=== PATIENT | female | born 2000 | race Asian ===

== ENCOUNTER 2021-02-04 22:32 | Emergency (ER) | payer SELFPAY ==
[2021-02-04 22:51] VITALS: BP 123/80
--- NOTE | 2021-02-04 23:13 | ED Physician Documentation ---
PD HPI FEMALE - Stated complaint Stated Complaint: FEMALE - Chief complaint Chief Complaint: UTI - History obtained from History obtained from: Patient - History of Present Illness Timing - onset: How many months ago (has had some itching and mild discharge over past couple of months, come and go, but now notable vaginal pain and dysuria for the past 1-2 days.) Timing - duration: Days Timing - details: Gradual onset, Still present (much worse the past 2 days.) Associated symptoms: Vaginal pain, Vaginal discharge, Dysuria. No: Fever, Abdominal pain, Back pain Contributing factors: Sexually active. 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 - Present Medications Home Medications: Ambulatory Orders Medication Instructions Recorded Confirmed Fluconazole [Diflucan] 150 mg PO ONCE #1 tablet 02/05/21 metroNIDAZOLE [Flagyl] 500 mg PO BID 7 Days #15 tablet 02/05/21 - Allergies Allergies/Adverse Reactions: Allergies Allergy/AdvReac Type Severity Reaction Status Date / Time No Known Drug Allergies Allergy Verified 02/04/21 22:50 PD ED PE NORMAL - Vitals Vital signs reviewed: Yes - General General: Alert and oriented X 3, No acute distress, Well developed/nourished - Abdomen Abdomen: Soft, Non tender - Female Female : Supply Manager present, Other (external normal. Vault with thicker white discharge but also watery clear mucous discharge. Cervix is not red and no apparent endocervical discharge. ) - Rectal Rectal: Deferred - Back Back: No CVA TTP - Derm Derm: Normal color, Warm and dry Results - Vitals Vitals: Vital Signs - 24 hr 02/04/21 22:47 Temperature 36.4 C L Heart Rate 86 Respiratory 12 Rate Blood Pressure 123/80 O2 Saturation 99 Oxygen O2 Source Room air - Labs Labs: Laboratory Tests 02/04/21 02/04/21 02/04/21 00:06 00:06 23:37 Urine Color YELLOW Urine Clarity CLEAR Urine pH 6.5 Ur Specific [place] <=1.005 Urine Protein NEGATIVE Urine Glucose (UA) NEGATIVE Urine Ketones 15 H Urine Occult Blood NEGATIVE Urine Nitrite NEGATIVE Urine Bilirubin NEGATIVE Urine Urobilinogen 0.2 (NORMAL) Ur Leukocyte Esterase TRACE H Urine RBC 0-5 Urine WBC 6-10 H Ur Squamous Epith Cells FEW Squamous Urine Bacteria Few Ur Microscopic Review INDICATED Urine Culture Comments INDICATED Urine HCG, Qual NEGATIVE C. glabrata (PCR) NEGATIVE C. krusei (PCR) NEGATIVE [place]ali species DNA NEGATIVE Chlam trachomat DNA PCR NEGATIVE N.gonorrhoeae DNA (PCR) NEGATIVE T. vaginalis (PCR) NEGATIVE NEGATIVE Bact Vaginosis (PCR) NEGATIVE PD MEDICAL DECISION MAKING - ED course Complexity details: considered differential (clinically appears some yeast but also likely BV. No cervicitis per se. ), d/w patient Departure - Departure Disposition: 01 Home, Self Care Clinical Impression: Acute vaginitis Condition: Stable Record reviewed to determine appropriate education?: Yes Instructions: ED Vaginosis Bacterial, ED Vaginal Infec Fungal [place]ali Prescriptions: Fluconazole [Diflucan] 150 mg PO ONCE #1 tablet metroNIDAZOLE [Flagyl] 500 mg PO BID 7 Days #15 tablet Comments: On clinical exam, it looks likely to be a yeast infection certainly and also likely bacterial vaginitis. We gave you an antifungal tablet today. Take the fluconazole tablet repeat dose in 3 days. That should take care of the fungal component. Metronidazole twice daily for a week for the bacterial vaginitis. We did do a culture/PCR tests to assess for the vaginitis as well as STIs. This will result in 1 or 2 days. We will call you if we need to change the antibiotic treatment. On exam right now, it does not have the appearance of a typical STI so I would not treat it ahead of time but await the test results. Discharge Date/Time: 02/05/21 00:55
[2021-02-04 23:54] LABS: BILIRUBIN,URINE NEGATIVE (NEGATIVE); GLUCOSE, URINE (UA) NEGATIVE (NEGATIVE); KETONES,URINE (UA) 15 mg/dL (NEGATIVE); LEUKOCYTE ESTERASE, URINE TRACE (NEGATIVE); NITRITE,URINE NEGATIVE (NEGATIVE); OCCULT BLOOD,URINE NEGATIVE (NEGATIVE); PH,URINE 6.5 PH (5.0-7.5); PROTEIN,URINE NEGATIVE (NEGATIVE); UROBILINOGEN,URINE 0.2 (NORMAL) E.U./dL (NORMAL)
[2021-02-04 23:56] LABS: CLARITY,URINE CLEAR (CLEAR); HCG UR QUAL NEGATIVE
[2021-02-05] LABS: BACTERIA,URINE Few /HPF (None Seen); RBC,URINE 0-5 /HPF (0-5); SQUAMOUS EPITHELIAL CELL,UR FEW Squamous (<= Few)
[2021-02-05] MEDS ORDERED: metroNIDAZOLE 250 MG TABLET PO STA (00:13)
[2021-02-05] MEDS ORDERED: FLUCONAZOLE 100 MG TABLET PO STA (00:13)
[2021-02-05 02:41] LABS: BACTERIAL VAGINOSIS DNA NEGATIVE (NEGATIVE); CANDIDA GLABRATA DNA NEGATIVE (NEGATIVE); CANDIDA GROUP DNA NEGATIVE (NEGATIVE); CANDIDA KRUSEI DNA NEGATIVE (NEGATIVE); TRICHOMONAS VAGINALIS DNA NEGATIVE (NEGATIVE)
[2021-02-05 04:54] LABS: CHLAMYDIA TRACHOMATIS DNA NEGATIVE (NEGATIVE); NEISSERIA GONORRHOEAE DNA NEGATIVE (NEGATIVE); TRICHOMONAS VAGINALIS DNA NEGATIVE (NEGATIVE)
== END 2021-02-05 00:55 | disposition home or self-care (01) ==
LOC: ED 22:32
DX: N76.0 Acute vaginitis (principal)
CPT/HCPCS: 81001; 81025; 87086; 87481; 87491; 87591; 87661; 87801; 99283; A9270; 81003

== ENCOUNTER 2021-08-11 15:50 | Outpatient (CLI) | payer MEDICAID ==
--- NOTE | 2021-08-11 16:58 | XRAY Report ---
PROCEDURE: Lumbar Spine 2 View INDICATIONS: LOW BACK PX TECHNIQUE: 3 views of the lumbar spine were acquired. COMPARISON: None. FINDINGS: Bones: 5 [id number] vertebrae are present. There is normal bony alignment. No vertebral body compression fractures. No suspicious bony lesions. Soft tissues: Overlying bowel gas pattern is normal. No suspicious soft tissue calcifications. IMPRESSION: No acute fracture. No osseous lesion. If symptoms and/or clinical suspicion for patholog y continue, further assessment with repeat plain films, or advanced imaging (e.g., CT, MRI, or bone s can) is recommended for further assessment. Reviewed by: Pako Mcgee MD on 08/11/2021 4:57 PM PST Approved by: Pako Mcgee MD on 08/11/2021 4:57 PM PST Station ID: [id number]
== END 2021-08-11 23:59 | disposition home or self-care (01) ==
LOC: DI.N 15:50
PROVIDERS: ATTEND Nurse Practitioner
DX: M54.50 Low back pain, unspecified (principal)

== ENCOUNTER 2021-09-29 14:14 | Emergency (ER) | payer MEDICAID ==
[2021-09-29 14:26] VITALS: BP 124/75
[2021-09-29 15:33] LABS: BILIRUBIN,URINE NEGATIVE (NEGATIVE); GLUCOSE, URINE (UA) NEGATIVE (NEGATIVE); KETONES,URINE (UA) NEGATIVE (NEGATIVE); LEUKOCYTE ESTERASE, URINE NEGATIVE (NEGATIVE); NITRITE,URINE NEGATIVE (NEGATIVE); OCCULT BLOOD,URINE NEGATIVE (NEGATIVE); PROTEIN,URINE NEGATIVE (NEGATIVE); UROBILINOGEN,URINE 0.2 (NORMAL) E.U./dL (NORMAL)
[2021-09-29 15:36] LABS: CLARITY,URINE CLEAR (CLEAR); HCG UR QUAL NEGATIVE
[2021-09-29] MEDS ORDERED: KETOROLAC 60 MG/2 ML VIAL IM STA (16:25)
--- NOTE | 2021-09-29 16:26 | ED Physician Documentation ---
PD HPI BACK PAIN - Stated complaint Stated Complaint: LOW BACK PX/PELVIC PX - Chief complaint Chief Complaint: Back Pain - History obtained from History obtained from: Patient - Additional information Additional information: For last 2 to 3 months she has had low back pain and pelvic pain, left worse than right with mild vaginal pain and discharge. Previous diagnosis of vaginitis last year with similar. She is and monogamous in her sexual activity. She denies fevers or chills. No nausea. States that ketorolac shots have been helpful in the past for similar issues. 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 - Past Surgical History Past Surgical History: No - Present Medications Home Medications: Ambulatory Orders Medication Instructions Recorded Confirmed Fluconazole [Diflucan] 150 mg PO ONCE #1 tablet 02/05/21 metroNIDAZOLE [Flagyl] 500 mg PO BID 7 Days #15 tablet 02/05/21 Meloxicam [Mobic] 7.5 mg PO BID PRN #20 tablet 09/29/21 - Allergies Allergies/Adverse Reactions: Allergies Allergy/AdvReac Type Severity Reaction Status Date / Time No Known Drug Allergies Allergy Verified 09/29/21 14:22 - Social History Does the pt smoke?: No Smoking Status: Never smoker Does the pt drink ETOH?: No Does the pt have substance abuse?: No - Immunizations Immunizations are current?: Yes - POLST Patient has POLST: No PD ED PE NORMAL - Vitals Vital signs reviewed: Yes - General General: Alert and oriented X 3, No acute distress - Abdomen Abdomen: Normal bowel sounds, Soft, Non tender - Back Back: No spinal TTP, Other (Some muscular tenderness of the low back, no spinal tenderness) - Extremities Extremities: No edema, No calf tenderness / cord - Neuro Neuro: Alert and oriented X 3, Normal speech Results - Vitals Vitals: Vital Signs - 24 hr 09/29/21 14:22 Temperature 36.9 C Heart Rate 64 Respiratory 18 Rate Blood Pressure 124/75 O2 Saturation 99 Oxygen O2 Source Room air - Labs Labs: Laboratory Tests 09/29/21 09/29/21 15:21 16:37 Urine Color YELLOW Urine Clarity CLEAR Urine pH 6.0 Ur Specific [place] 1.020 Urine Protein NEGATIVE Urine Glucose (UA) NEGATIVE Urine Ketones NEGATIVE Urine Occult Blood NEGATIVE Urine Nitrite NEGATIVE Urine Bilirubin NEGATIVE Urine Urobilinogen 0.2 (NORMAL) Ur Leukocyte Esterase NEGATIVE Ur Microscopic Review NOT INDICATED Urine Culture Comments NOT INDICATED Urine HCG, Qual NEGATIVE C. glabrata (PCR) NEGATIVE C. krusei (PCR) NEGATIVE [place] species DNA NEGATIVE T. vaginalis (PCR) NEGATIVE Bact Vaginosis (PCR) NEGATIVE PD MEDICAL DECISION MAKING - ED course ED course: 21-year-old woman with subacute pelvic pain. Also concern for vaginitis. Vaginitis panel was negative but ultrasound showing a left ovarian cyst which could be causative. Gynecologic follow-up advised. She is not . Departure - Departure Disposition: 01 Home, Self Care Clinical Impression: Pelvic pain Condition: Good Record reviewed to determine appropriate education?: Yes Instructions: ED Acute Pain [facility] Prescriptions: Meloxicam [Mobic] 7.5 mg PO BID PRN #20 tablet PRN Reason: Pain Comments: As discussed, the ultrasound shows a left ovarian cyst measuring 2.4 x 1.7 x 2.3 cm. You [place]. They may want to perform an ultrasound in maybe 6 weeks to reassess. Return for new or worsening symptoms. I sent your prescription electronically to [facility]. Discharge Date/Time: 09/29/21 19:29
--- NOTE | 2021-09-29 18:30 | Ultrasound Report ---
PROCEDURE: Pelvic w/Doppler Complete INDICATIONS: PELVIC PAIN, TECHNIQUE: Real-time transabdominal scanning was performed of the pelvic organs, with image documentation. COMPARISON: None. FINDINGS: No pathologic free abdominal or pelvic fluid. Uterus: Uterus is normal in size at 6.8 x 4.3 x 6.8 cm. The endometrium measures 17.5 mm in combine d thickness. Ovaries: Right ovary measures 2.3 x 1.5 x 2.8 cm with total volume of 5.2 cc. Left ovary measures 2. 9 x 2.6 x 2.8 cm total volume of 15.0 cc. There is a 2.4 x 1.7 x 2.3 cm left ovarian thick walled cys t. Doppler evaluation demonstrates normal vascular flow within the ovaries bilaterally. IMPRESSION: 1. Uterus is sonographically normal. 2. No evidence of ovarian torsion. Please note ultrasound cannot exclude intermittent torsion. 3. 2.4 x 1.7 x 2.3 cm thick-walled left ovarian cyst. In a patient with negative test findi ng likely represents corpus luteal cyst or hemorrhagic cyst. In a patient with positive adrienne t ectopic is not excluded. Reviewed by: Maryanne Chaidez MD, PhD on 09/29/2021 5:[address] [facility] Approved by: Maryanne Chaidez MD, PhD on 09/29/2021 5:[address] [facility] Station ID: [id number]
[2021-09-29 19:17] LABS: BACTERIAL VAGINOSIS DNA NEGATIVE (NEGATIVE); CANDIDA GLABRATA DNA NEGATIVE (NEGATIVE); CANDIDA GROUP DNA NEGATIVE (NEGATIVE); CANDIDA KRUSEI DNA NEGATIVE (NEGATIVE); TRICHOMONAS VAGINALIS DNA NEGATIVE (NEGATIVE)
== END 2021-09-29 19:29 | disposition home or self-care (01) ==
LOC: ED 14:14
DX: R10.2 Pelvic and perineal pain (principal); N83.202 Unspecified ovarian cyst, left side; M54.50 Low back pain, unspecified
CPT/HCPCS: 81001; 81003; 81025; 87086; 87210; 87661; 87801; 93975; 96372; 99283; 99284

== ENCOUNTER 2021-11-10 18:11 | Emergency (ER) | payer OTHER, MEDICAID ==
[2021-11-10 18:17] VITALS: BP 116/69
[2021-11-10 18:25] LABS: BILIRUBIN,URINE NEGATIVE (NEGATIVE); GLUCOSE, URINE (UA) NEGATIVE (NEGATIVE); KETONES,URINE (UA) 15 mg/dL (NEGATIVE); LEUKOCYTE ESTERASE, URINE TRACE (NEGATIVE); NITRITE,URINE NEGATIVE (NEGATIVE); OCCULT BLOOD,URINE SMALL (NEGATIVE); PROTEIN,URINE NEGATIVE (NEGATIVE); UROBILINOGEN,URINE 0.2 (NORMAL) E.U./dL (NORMAL)
[2021-11-10] MEDS ORDERED: PHENAZOPYRIDINE 100 MG TABLET PO STA (18:25)
--- NOTE | 2021-11-10 18:25 | ED Physician Documentation ---
History of Present Illness - Stated complaint Stated Complaint: FEMALE - Chief complaint Chief Complaint: UTI - History obtained from History obtained from: Patient (21-year-old has had 3 days of urinary dysuria and burning and frequency. It is not associated with any constant back pain but she has occasional shocking pains in her back. No fevers or nausea. 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 - Past Surgical History Past Surgical History: No - Present Medications Home Medications: Ambulatory Orders Medication Instructions Recorded Confirmed Fluconazole [Diflucan] 150 mg PO ONCE #1 tablet 02/05/21 metroNIDAZOLE [Flagyl] 500 mg PO BID 7 Days #15 tablet 02/05/21 Meloxicam [Mobic] 7.5 mg PO BID PRN #20 tablet 09/29/21 Nitrofurantoin [Macrobid] 1 cap PO BID #10 cap 11/10/21 Phenazopyridine HCl [Pyridium] 200 mg PO TID PRN #6 tablet 11/10/21 - Allergies Allergies/Adverse Reactions: Allergies Allergy/AdvReac Type Severity Reaction Status Date / Time No Known Drug Allergies Allergy Verified 11/10/21 18:14 - Social History Does the pt smoke?: No Smoking Status: Never smoker Does the pt drink ETOH?: No Does the pt have substance abuse?: No - Immunizations Immunizations are current?: Yes - POLST Patient has POLST: No PD ED PE NORMAL - Vitals Vital signs reviewed: Yes - General General: Alert and oriented X 3, No acute distress - Abdomen Abdomen: Soft, Non tender - Back Back: No CVA TTP - Neuro Neuro: Alert and oriented X 3, Normal speech Results - Vitals Vitals: Vital Signs - 24 hr 11/10/21 18:14 Temperature 36.5 C Heart Rate 70 Respiratory 16 Rate Blood Pressure 116/69 O2 Saturation 100 Oxygen O2 Source Room air - Labs Labs: Laboratory Tests 11/10/21 18:20 Urine Color LT. YELLOW Urine Clarity CLEAR Urine pH 6.0 Ur Specific [place] 1.010 Urine Protein NEGATIVE Urine Glucose (UA) NEGATIVE Urine Ketones 15 H Urine Occult Blood SMALL H Urine Nitrite NEGATIVE Urine Bilirubin NEGATIVE Urine Urobilinogen 0.2 (NORMAL) Ur Leukocyte Esterase TRACE H Urine RBC 6-10 H Urine WBC 11-25 H Ur Squamous Epith Cells NONE SEEN Urine Bacteria Few Ur Microscopic Review INDICATED Urine Culture Comments INDICATED Urine HCG, Qual NEGATIVE Departure - Departure Disposition: 01 Home, Self Care Clinical Impression: Cystitis Condition: Good Record reviewed to determine appropriate education?: Yes Instructions: ED UTI Cystitis Female Prescriptions: Nitrofurantoin [Macrobid] 1 cap PO BID #10 cap Phenazopyridine HCl [Pyridium] 200 mg PO TID PRN #6 tablet PRN Reason: dysuria Comments: As discussed, it seems today that you have a bladder infection. Return if you worsen or if the back pain comes worse or if you run a fever. I sent your prescription electronically to [facility] in [place]. We will culture your urine, the results should be done in 48-72 hours. If an antibiotic change is necessary we will call you. Return if worse in the meantime, especially if you develop increasing flank pain, fevers, or cannot k eep down the medication.
[2021-11-10 18:26] LABS: CLARITY,URINE CLEAR (CLEAR)
[2021-11-10 18:27] LABS: HCG UR QUAL NEGATIVE
[2021-11-10 18:35] LABS: BACTERIA,URINE Few /HPF (None Seen); SQUAMOUS EPITHELIAL CELL,UR NONE SEEN (<= Few)
[2021-11-10] MEDS ORDERED: NITROFURANTOIN MACRO 100 MG CAPSULE PO STA (18:39)
== END 2021-11-10 18:51 | disposition home or self-care (01) ==
LOC: ED 18:11
DX: N30.90 Cystitis, unspecified without hematuria (principal)
CPT/HCPCS: 81001; 81025; 87086; 87181; 99282; 99283; A9270; 81003

== ENCOUNTER 2022-08-31 12:38 | Emergency (ER) | payer MEDICAID, OTHER ==
[2022-08-31 12:59] VITALS: BP 129/74
[2022-08-31 13:17] LABS: BASOPHILS % (AUTO) 0.2 %; EOSINOPHILS # (AUTO) 0.1 10^3/uL (0.0-0.7); EOSINOPHILS % (AUTO) 1.5 %; HCT - HEMATOCRIT 43.1 % (37.0-47.0); HGB - HEMOGLOBIN 14.1 g/dL (12.0-16.0); LYMPHOCYTES # (AUTO) 1.6 10^3/uL (1.5-3.5); LYMPHOCYTES % (AUTO) 29.4 %; MEAN CORPUSCULAR HEMOGLOBIN 28.6 pg (27.0-31.0); MEAN CORPUSCULAR HGB CONC 32.7 g/dL (32.0-36.0); MEAN CORPUSCULAR VOLUME 87.4 fL (81.0-99.0); MEAN PLATELET VOLUME 9.1 fL (7.9-10.8); MONOCYTES # (AUTO) 0.5 10^3/uL (0.0-1.0); MONOCYTES % (AUTO) 8.7 %; NEUTROPHILS # (AUTO) 3.2 10^3/uL (1.5-6.6); NEUTROPHILS % (AUTO) 59.6 %; PLT - PLATELET COUNT 253 10^3/uL (130-450); RED BLOOD COUNT 4.93 10^6/uL (4.20-5.40); RED CELL DISTRIBUTION WIDTH 13.1 % (12.0-15.0); WHITE BLOOD COUNT 5.4 x10^3/uL (4.8-10.8)
[2022-08-31 13:30] LABS: ALBUMIN 4.2 g/dL (3.2-5.5); ALBUMIN/GLOBULIN RATIO 1.2 (1.0-2.2); BILIRUBIN,TOTAL 0.8 mg/dL (0.2-1.0); CALCIUM 8.9 mg/dL (8.5-10.3); CREATININE 0.6 mg/dL (0.4-1.0); POTASSIUM 3.8 mmol/L (3.5-5.0); TOTAL PROTEIN 7.8 g/dL (6.7-8.2)
[2022-08-31 13:30] LABS: BILIRUBIN,URINE NEGATIVE (NEGATIVE); GLUCOSE, URINE (UA) NEGATIVE (NEGATIVE); KETONES,URINE (UA) 15 mg/dL (NEGATIVE); LEUKOCYTE ESTERASE, URINE NEGATIVE (NEGATIVE); NITRITE,URINE NEGATIVE (NEGATIVE); OCCULT BLOOD,URINE NEGATIVE (NEGATIVE); PROTEIN,URINE NEGATIVE (NEGATIVE); UROBILINOGEN,URINE 0.2 (NORMAL) E.U./dL (NORMAL)
[2022-08-31 13:31] LABS: CLARITY,URINE CLEAR (CLEAR); HCG UR QUAL NEGATIVE
[2022-08-31] MEDS ORDERED: iohexoL-300 100 ML VIAL ONE (13:37)
--- NOTE | 2022-08-31 15:11 | CT Report ---
PROCEDURE: ABDOMEN/PELVIS W INDICATIONS: RLQ pain CONTRAST: 100ml Omnipaque 300 TECHNIQUE: After the administration of intravenous contrast, 5 mm thick sections acquired from the diaphragms to the symphysis. 5 mm thick coronal and sagittal reformats were acquired. For radiation dose reducti on, the following was used: automated exposure control, adjustment of mA and/or kV according to niyah ent size. COMPARISON: None. FINDINGS: Image quality: Excellent. ABDOMEN: Lung bases: Lung bases are clear. Heart size is normal. Solid organs: Liver and spleen are normal in size and enhancement. Gallbladder is unremarkable with out calcified gallstones. Biliary system is non dilated. Pancreas enhances normally. No adrenal no dules. Kidneys demonstrate normal size and enhancement, without hydronephrosis. Peritoneum and bowel: Bowel loops demonstrate normal wall thickness and caliber. A normal gas-filled appendix is identified. There is mild pelvic ascites, somewhat greater than physiologic. Nodes and vessels: No retroperitoneal or mesenteric adenopathy by size criteria. Aorta and inferior vena cava are normal in size. Miscellaneous: No ventral hernias. PELVIS: Genitourinary: Bladder wall thickness is normal. Miscellaneous: No inguinal hernias or adenopathy. Partially collapsed left adnexal cyst. Bones: No suspicious bony lesions. No vertebral body compression fractures. Diffuse disc bulge at L4-L5 and probable associated shallow superiorly disc extrusion. Disc bulge at L5-S1. IMPRESSION: 1. A normal appendix is identified. 2. Partially collapsed left adnexal cyst with mild pelvic ascites, greater than physiologic. 3. Disc bulge plus shallow associated disc extrusion at L4-L5, disc bulge at L5-S1. 4. No other significant findings noted. Reviewed by: Terry Swenson MD on 08/31/2022 3:10 PM PST Approved by: Terry Swenson MD on 08/31/2022 3:10 PM PST Station ID: [id number]
[2022-08-31] MEDS ORDERED: iohexoL-300 100 ML VIAL IVP ONE (15:41)
--- NOTE | 2022-08-31 15:45 | ED Physician Documentation ---
PD HPI ABD PAIN - Stated complaint Stated Complaint: ABD PX - Chief complaint Chief Complaint: Abd Pain - History obtained from History obtained from: Patient - Additional information Additional information: The patient is sent to the emergency department by the walk-in clinic for "possible appendicitis". She is reported by the referring provider to have had "right lower quadrant pain". The patient reports that yesterday, she began to notice upper abdominal pain that was on both sides lasted throughout the day and then became generalized. No nausea or vomiting. No fevers. No change in her bowel habits. No dysuria. She is not known to be . The patient states she has a history of "ulcerative colitis" but she does not know if that is still active. She is not currently on any medications. No respiratory symptoms. No other complaints at this time. Review of Systems Ten Systems: 10 systems reviewed and negative Constitutional: reports: Reviewed and negative Eyes: reports: Reviewed and negative Ears: reports: Reviewed and negative Nose: reports: Reviewed and negative Throat: reports: Reviewed and negative Cardiac: reports: Reviewed and negative Respiratory: reports: Reviewed and negative GI: reports: Abdominal Pain : reports: Reviewed and negative Skin: reports: Reviewed and negative Musculoskeletal: reports: Reviewed and negative Neurologic: reports: Reviewed and negative Psychiatric: reports: Reviewed and negative Endocrine: reports: Reviewed and negative Immunocompromised: reports: Reviewed and negative PD PAST MEDICAL HISTORY - Past Medical History Cardiovascular: None Respiratory: None 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 - Past Surgical History Past Surgical History: No - Present Medications Home Medications: Ambulatory Orders Medication Instructions Recorded Confirmed Fluconazole [Diflucan] 150 mg PO ONCE #1 tablet 02/05/21 metroNIDAZOLE [Flagyl] 500 mg PO BID 7 Days #15 tablet 02/05/21 Meloxicam [Mobic] 7.5 mg PO BID PRN #20 tablet 09/29/21 Nitrofurantoin [Macrobid] 1 cap PO BID #10 cap 11/10/21 Phenazopyridine HCl [Pyridium] 200 mg PO TID PRN #6 tablet 11/10/21 - Allergies Allergies/Adverse Reactions: Allergies Allergy/AdvReac Type Severity Reaction Status Date / Time No Known Drug Allergies Allergy Verified 08/31/22 12:59 - Social History Does the pt smoke?: No Smoking Status: Never smoker Does the pt drink ETOH?: No Does the pt have substance abuse?: No - Immunizations Immunizations are current?: Yes - POLST Patient has POLST: No PD ED PE NORMAL - Vitals Vital signs reviewed: Yes - General General: Alert and oriented X 3, No acute distress, Well developed/nourished - HEENT HEENT: Atraumatic, PERRL, EOMI, Moist mucous membranes - Neck Neck: Supple, no meningeal sign - Cardiac Cardiac: RRR, No murmur, Strong equal pulses - Respiratory Respiratory: No respiratory distress, Clear bilaterally - Abdomen Abdomen: Soft, Non tender, Non distended - Derm Derm: Normal color, Warm and dry, No rash - Extremities Extremities: No deformity, No edema - Neuro Neuro: Alert and oriented X 3, stonemason helper 2-12 intact, Normal speech - Psych Psych: Normal mood, Normal affect Results - Vitals Vitals: Vital Signs - 24 hr 08/31/22 08/31/22 12:57 15:00 Temperature 36.8 C 36.8 C Heart Rate 76 76 Respiratory 20 20 Rate Blood Pressure 129/74 129/74 O2 Saturation 99 99 Oxygen O2 Source Room air - Labs Labs: Laboratory Tests 08/31/22 08/31/22 08/31/22 13:10 13:12 13:12 WBC 5.4 RBC 4.93 Hgb 14.1 Hct 43.1 MCV 87.4 MCH 28.6 MCHC 32.7 RDW 13.1 Plt Count 253 MPV 9.1 Neut # (Auto) 3.2 Lymph # (Auto) 1.6 [place] # (Auto) 0.5 Eos # (Auto) 0.1 Baso # (Auto) 0.0 Absolute Nucleated RBC 0.00 Nucleated RBC % 0.0 Sodium 134 L Potassium 3.8 Chloride 101 Carbon Dioxide 26 Anion Gap 7.0 BUN 6 Creatinine 0.6 Estimated GFR (MDRD) 126 Glucose 87 Calcium 8.9 Total Bilirubin 0.8 AST 21 ALT 13 Alkaline Phosphatase 54 Total Protein 7.8 Albumin 4.2 Globulin 3.6 Albumin/Globulin Ratio 1.2 Lipase 36 Urine Color LT. YELLOW Urine Clarity CLEAR Urine pH 7.0 Ur Specific [place] 1.010 Urine Protein NEGATIVE Urine Glucose (UA) NEGATIVE Urine Ketones 15 H Urine Occult Blood NEGATIVE Urine Nitrite NEGATIVE Urine Bilirubin NEGATIVE Urine Urobilinogen 0.2 (NORMAL) Ur Leukocyte Esterase NEGATIVE Ur Microscopic Review NOT INDICATED Urine Culture Comments NOT INDICATED Urine HCG, Qual NEGATIVE - Rads (name of study) CT abdomen and pelvis Radiology: Final report received, See rad report (Ruptured left ovarian cyst. Normal appendix.) PD Medical Decision Making - ED course Complexity details: reviewed results, re-evaluated patient, considered differential, d/w patient ED course: The patient's labs, urinalysis, and CT of the abdomen pelvis were all unremarkable, With the exception of the CT showing a ruptured left ovarian cyst. I discussed with the patient that I have not found an emergent cause of her abdominal pain. The pain seems to be improving and I do not find any evidence of a recurrence of her ulcerative colitis on CT. We have discussed the need for follow-up with her primary doctor and the usual indications for return. Departure - Departure Disposition: 01 Home, Self Care Clinical Impression: Abdominal pain Qualifiers: Abdominal location: upper abdomen, unspecified Qualified Code(s): R10.10 - Upper abdominal pain, unspecified Condition: Stable Instructions: ED Abdominal Pain Female Non-Specific Abdominal Pain Comments: Your labs, urinalysis, and CT scan all look good. You have a ruptured left ovarian cyst that may or may not be contributing to your symptoms. Your appendix looks fine. Please follow-up with your primary care physician for further concerns. Forms: Activity restrictions
== END 2022-08-31 15:50 | disposition home or self-care (01) ==
LOC: ED 12:38
DX: R10.10 Upper abdominal pain, unspecified (principal); N83.202 Unspecified ovarian cyst, left side
CPT/HCPCS: 36415; 74177; 80053; 81003; 81025; 83690; 85025; 99282; 99284; Q9967; 81001; 87086

== ENCOUNTER 2022-12-07 08:00 | Outpatient (CLI) | payer OTHER ==
[2022-12-07 21:21] LABS: BASOPHILS % (AUTO) 0.3 %; EOSINOPHILS % (AUTO) 0.6 %; HCT - HEMATOCRIT 40.3 % (37.0-47.0); LYMPHOCYTES # (AUTO) 2.3 10^3/uL (1.5-3.5); LYMPHOCYTES % (AUTO) 33.9 %; MEAN CORPUSCULAR HEMOGLOBIN 28.1 pg (27.0-31.0); MEAN CORPUSCULAR HGB CONC 32.3 g/dL (32.0-36.0); MEAN PLATELET VOLUME 10.3 fL (7.9-10.8); MONOCYTES # (AUTO) 0.6 10^3/uL (0.0-1.0); MONOCYTES % (AUTO) 8.4 %; NEUTROPHILS # (AUTO) 3.8 10^3/uL (1.5-6.6); NEUTROPHILS % (AUTO) 56.5 %; PLT - PLATELET COUNT 266 10^3/uL (130-450); RED BLOOD COUNT 4.63 10^6/uL (4.20-5.40); RED CELL DISTRIBUTION WIDTH 13.1 % (12.0-15.0); WHITE BLOOD COUNT 6.7 x10^3/uL (4.8-10.8)
[2022-12-07 21:31] LABS: ALBUMIN 4.2 g/dL (3.2-5.5); ALBUMIN/GLOBULIN RATIO 1.4 (1.0-2.2); ALKALINE PHOSPHATASE 54 IU/L (42-121); ALT ALANINE AMINOTRANSFERASE < 10 IU/L (10-60); AST ASPARTATE AMINOTRANSFERASE 17 IU/L (10-42); BILIRUBIN,TOTAL 0.3 mg/dL (0.2-1.0); BUN - BLOOD UREA NITROGEN 10 mg/dL (6-20); CARBON DIOXIDE - CO2 25 mmol/L (21-32); CHLORIDE 107 mmol/L (101-111); GLUCOSE 89 mg/dL (70-100); POTASSIUM 3.7 mmol/L (3.5-5.0); SODIUM 138 mmol/L (135-145); TOTAL PROTEIN 7.1 g/dL (6.7-8.2)
[2022-12-07 21:38] LABS: CREATININE 0.5 mg/dL (0.4-1.0); GFR - MDRD 156 (>89)
== END 2022-12-07 23:59 | disposition home or self-care (01) ==
LOC: LAB.N 08:00
PROVIDERS: ATTEND Physician Assistant
DX: R10.9 Unspecified abdominal pain (principal)
CPT/HCPCS: 36415; 80053; 85025